=== PATIENT | female | born 1980 | race Two or more races ===

== ENCOUNTER 2025-03-10 12:43 | Emergency (ER) | payer MEDICAID, SELFPAY ==
[2025-03-10 12:44] VITALS: BMI 34.0
[2025-03-10 13:03] VITALS: BP 137/83; PULSE 91; RESP 18; TEMP 36.9; O2SAT 99
--- NOTE | 2025-03-10 13:15 | EDNOTE_ITS ---
ED Wound/Laceration-RME/HPI General Chief Complaint: Wound/Laceration Stated Complaint: LEFT THUMB LACERATION Time Seen by Provider: 03/10/25 12:47 Arrival date/time: 03/10/25 12:43 44-year-old female presents emergency department today for complaint of laceration of the left thumb reports that she was cutting vegetables and accidentally cut her finger today Limitations: no limitations Related Data Home Medications ?Medication ?Instructions ?Recorded ?Confirmed omeprazole 40 mg capsule,delayed 40 mg PO QDAY ##0 release Previous Rx's ?Medication ?Instructions ?Recorded naproxen 500 mg tablet 500 mg PO BID PRN pain #20 t abs 06/20/18 diphenhydramine HCl 50 mg capsule 50 mg PO Q6H PRN all ergic reaction 07/17/21 #20 caps famotidine 20 mg tablet 20 mg PO BID #14 tabs ibuprofen 800 mg tablet 800 mg PO Q8H PRN pain #30 t abs 09/02/21 diphenhydramine HCl 25 mg capsule 25 mg PO TID PRN all ergic reaction 01/25/24 (Banophen) #30 caps Allergies Allergy/AdvReac Type Severity Reaction Status Date / Time No Known Allergies Allergy Verified 03/10/25 12:46 Review of Systems Review of Systems Systems Reviewed: All systems reviewed, normal except as documented Constitutional Constitutional: Reports system reviewed and no additional complaints, except as documented, Denies fever(s) and Denies headache(s) Eyes Eyes: Reports system reviewed and no additional complaints, except as documented and Denies blurry vision ENT Ears, Nose, Mouth, and Throat: Reports system reviewed and no additional complaints, except as documented, Denies headache(s), Denies nasal congestion and Denies nasal discharge Cardiovascular Cardiovascular: Reports system reviewed and no additional complaints, except as documented, Denies chest pain and Denies dyspnea Respiratory Respiratory: Reports system reviewed and no additional complaints, except as documented, Denies chest congestion, Denies cough and Denies dyspnea Gastrointestinal Gastrointestinal: Reports system reviewed and no additional complaints, except as documented and Denies abdominal pain Integumentary/Breasts Skin/Breast: Reports system reviewed and no additional complaints, except as documented, Denies rash and Reports wounds (Laceration left thumb) Neurologic Neurologic: Reports system reviewed and no additional complaints, except as documented, Reports as per HPI and Denies headache(s) Past Medical History Past Medical History CARDIAC: Negative Cardiac Disorders RESPIRATORY: Negative Asthma GENITOURINARY: Negative Renal Disease ENDOCRINE: Negative Diabetes Mellitus Type 2 HEMATOLOGIC: Negative Sickle Cell Disease Social History SMOKING STATUS: Never smoker ED Exam General Limitations: Present no limitations General appearance: Present alert and in no apparent distress Head Head exam: Present atraumatic Eye Eye exam: Present normal appearance, PERRL and EOMI ENT ENT exam: Present normal exam, normal oropharynx and mucous membranes moist Neck Neck exam: Present normal inspection, full ROM and trachea midline Chest Chest inspection: Present normal inspection and symmetric chest wall rise Respiratory Respiratory exam: Present normal lung sounds bilaterally Cardiovascular Cardiovascular exam: Present regular rate, normal rhythm and normal heart sounds Abdominal Exam Abdominal exam: Present soft and normal bowel sounds Extremities Exam Extremities exam: Present full ROM and tenderness (Left thumb pain) Back Exam Back exam: Present normal inspection and full ROM Neurological Exam Neurological exam: Present alert, oriented X3 and CN II-XII intact Psychiatric Psychiatric exam: Present normal affect and normal mood Skin Skin exam: Present warm, dry and other (Laceration left thumb) Course Quality Measures none Orders Category Date Time Status Set Up Suture Tray STAT Care 03/10/25 13:15 Active Wound Care NOW Care 03/10/25 13:15 Active Lidocaine 1% 20 ml [Xylocaine 1% 20 ML] Med 03/10/25 13:15 Discontinued 20 ml INFL X1 ONE TET,DIP/PERT AC (Adult)-Tdap [Boostrix Adult (Tdap) Med 03/10/25 13:15 Discontinued Vacc] 0.5 ml IMI .ONCE ONE Vital Signs Vital signs: Vital Signs Temperature 98.5 F 03/10/25 13:03 Pulse Rate 91 03/10/25 13:03 Respiratory Rate 18 03/10/25 13:03 Blood Pressure 137/83 H 03/10/25 13:03 Pulse Oximetry (%) 99 03/10/25 13:03 Oxygen Delivery Method Room Air 03/10/25 13:03 O2 saturation 99% room air within normal limits Procedures -ED Laceration Laceration 1: Site: hand Side (If applicable): left Size (cm): 2 Description: linear Depth: simple, single layer Local Anesthetic: lidocaine 1% Amount of anesthesia used (mL): 5 Pre-repair: wound explored and irrigated extensively Skin layer closed with: nylon Size (cm): 5-0 Number of sutures: 3 Technique: simple, interrupted Wound / Laceration MDM Narrative MDM Narrative:: 44-year-old female presents emergency department today for complaint of laceration of the left thumb reports that she was cutting vegetables and accidentally cut her finger today On exam patient has laceration distal aspect of the left thumb no evidence of tendon or ligamentous injury laceration relatively superficial Wound irrigated copiously laceration repair with 3 sutures Tetanus updated Patient discharged home in no distress to follow-up with primary care doctor in the next 24 to 48 hours and for any worsening symptoms to return to the ER immediately Patient data External records reviewed:: [facility] previous records Clinical information provided by:: patient Social determinants that could affect healthcare access:: none Patient has the following chronic illnesses:: None How is presenting disease/condition affected by chronic disease/condition?: no chronic disease Evaluation data The following diagnostics were reviewed and interpreted by me:: other (specify) (N/A) Lab and/or radiology exams considered but not ordered:: Considered not ordered Interpretation Summary: N/A Medications / Prescriptions Medications or Prescriptions considered but not ordered:: Given Medication administrations:: Medication Administration History Discontinued Medications Diphtheria/Tetanus/Acell Pertussis (Diphth,Pertuss(Acell),Tet Vac 0.5 Ml Syr- Adult) 0.5 ml IMi .ONCE ONE Stop: 03/10/25 13:16 Lidocaine HCl (Lidocaine Hcl 1% 20 Ml Vial) 20 ml INFL X1 ONE Stop: 03/10/25 13:16 Given Consultations Consultation(s) initiated? (list below): No Diagnosis Wound Differential Diagnosis: laceration, abrasion and avulsion of skin Most likely diagnosis given after review of the tests above:: Laceration Admission Indicated Admission indicated?: not indicated Admission Request Was there a request for admission?: No Disposition Plan Disposition Plan: Discharge Discharge Attestation Discharge Attestation: The patient and all family members were given an opportunity to ask questions and understood the discharge instructions. Discharge instructions specifically effects, indications for sooner follow up or return to the emergency department, and the expected course of current diagnosis. Patient condition: Stable Discharge Plan Plan Patient Disposition: HOME (Self Care) Disposition Comment: Stable Prescriptions/Referrals Prescriptions/Med Rec: No Action omeprazole 40 MG capsule,delayed release(DR/EC) 40 mg PO QDAY Qty: 0 naproxen 500 mg tablet 500 mg PO BID PRN (Reason: pain) Qty: 20 0RF diphenhydramine HCl 50 mg capsule 50 mg PO Q6H PRN (Reason: allergic reaction) Qty: 20 0RF famotidine 20 mg tablet 20 mg PO BID Qty: 14 0RF ibuprofen 800 mg tablet 800 mg PO Q8H PRN (Reason: pain) Qty: 30 0RF diphenhydramine HCl [Banophen] 25 mg capsule 25 mg PO TID PRN (Reason: allergic reaction) Qty: 30 0RF Problem List Clinical Impression: Laceration of left thumb Patient/Caregiver Discharge Instructions Education Materials: ED Laceration: All Closures Additional Instructions: Please follow up with your primary care doctor in the next 24-48hrs for any worsening symptoms return here immediately Print Language: Occitan Stand Alone Forms: Johana Award Info., Patient Portal Info Letter Vaccines Vaccines Given During Stay: TDaP PA/ELECTRIC WELDER HELPER Supervising Physician PA/ELECTRIC WELDER HELPER Supervising Physician: Dr quintero
[2025-03-10] MEDS: DIPHTH,PERTUSS(ACELL),TET VAC 0.5 ML SYR- ADULT IMi (13:42)
[2025-03-10] MEDS: LIDOCAINE HCL 1% 20 ML VIAL INFL (13:43)
== END 2025-03-10 13:50 | disposition home or self-care (01) ==
LOC: SERX 13:37
PROVIDERS: Emergency Provider Emergency Medicine; PCP Physician Assistant
DX: S61.012A Laceration without foreign body of left thumb without damage to nail, initial encounter (principal); Z23 Encounter for immunization; Y93.G1 Activity, food preparation and clean up
CPT/HCPCS: 12001; 90471; 90715; 99283; J3490

== ENCOUNTER 2025-03-20 11:12 | Emergency (ER) | payer MEDICAID, SELFPAY ==
[2025-03-20 11:31] VITALS: BP 127/79; PULSE 99; RESP 16; TEMP 36.8; O2SAT 98; BMI 32.5
--- NOTE | 2025-03-20 11:38 | PD.EDWOUND ---
ED Wound/Laceration-RME/HPI General Chief Complaint: Wound/Laceration Stated Complaint: left thumb laceration Time Seen by Provider: 03/20/25 11:31 Source: patient Arrival date/time: 03/20/25 11:12 44-year-old female with no known medical history presents to the emergency room with a chief complaint of suture removals from her left thumb. Mode of arrival: ambulatory Limitations: no limitations Related Data Home Medications ?Medication ?Instructions ?Recorded ?Confirmed omeprazole 40 mg capsule,delayed 40 mg PO QDAY ##0 09/01/16 release Previous Rx's ?Medication ?Instructions ?Recorded naproxen 500 mg tablet 500 mg PO BID PRN pain #20 tabs 06/20/18 diphenhydramine HCl 50 mg capsule 50 mg PO Q6H PRN allergic reaction 07/17/21 #20 caps famotidine 20 mg tablet 20 mg PO BID #14 tabs 07/17/21 ibuprofen 800 mg tablet 800 mg PO Q8H PRN pain #30 tabs 09/02/21 diphenhydramine HCl 25 mg capsule 25 mg PO TID PRN allergic reaction 01/25/24 (Banophen) #30 caps Allergies Allergy/AdvReac Type Severity Reaction Status Date / Time No Known Allergies Allergy Verified 03/20/25 11:14 Review of Systems Review of Systems Systems Reviewed: All systems reviewed, normal except as documented Constitutional Constitutional: Reports system reviewed and no additional complaints, except as documented, Denies fatigue, Denies fever(s), Denies headache(s) and Denies weakness Eyes Eyes: Reports system reviewed and no additional complaints, except as documented, Denies blurry vision and Denies change in vision ENT Ears, Nose, Mouth, and Throat: Reports system reviewed and no additional complaints, except as documented, Denies otalgia, Denies headache(s), Denies nasal congestion, Denies throat swelling and Denies vertigo Cardiovascular Cardiovascular: Reports system reviewed and no additional complaints, except as documented, Denies chest pain, Denies dyspnea and Denies dyspnea on exertion Respiratory Respiratory: Reports system reviewed and no additional complaints, except as documented, Denies chest congestion, Denies cough, Denies dyspnea, Denies dyspnea on exertion and Denies wheezing Gastrointestinal Gastrointestinal: Reports system reviewed and no additional complaints, except as documented, Denies abdominal pain, Denies cramping, Denies nausea and Denies vomiting Genitourinary Genitourinary: Reports system reviewed and no additional complaints, except as documented Musculoskeletal Musculoskeletal: Reports system reviewed and no additional complaints, except as documented and Denies back pain Integumentary/Breasts Skin/Breast: Reports system reviewed and no additional complaints, except as documented and Denies wounds Neurologic Neurologic: Reports system reviewed and no additional complaints, except as documented, Denies confusion, Denies headache(s), Denies lack of coordination, Denies vertigo and Denies weakness Psychiatric Psychiatric: Reports system reviewed and no additional complaints, except as documented, Denies anxiety, Denies confusion, Denies depression, Denies paranoia, Denies suicidal ideation and Denies tactile hallucinations Endocrine Endocrine: Reports system reviewed and no additional complaints, except as documented and Denies fatigue Hematologic/Lymphatic Hematologic/Lymphatic: Reports system reviewed and no additional complaints, except as documented and Denies lymphadenopathy Allergic/Immunologic Allergic/Immunologic: Reports system reviewed and no additional complaints, except as documented, Denies throat swelling, Denies urticaria and Denies wheezing Past Medical History Past Medical History CARDIAC: Negative Cardiac Disorders or Congestive Heart Failure RESPIRATORY: Negative Chronic Obstructive Pulmonary Disease (COPD) or Asthma GENITOURINARY: Negative Renal Disease ENDOCRINE: Negative Diabetes Mellitus Type 1 or Diabetes Mellitus Type 2 HEMATOLOGIC: Negative Sickle Cell Disease Social History SMOKING STATUS: Never smoker ED Exam General Limitations: Present no limitations General appearance: Present alert and in no apparent distress Head Head exam: Present atraumatic Eye Eye exam: Present normal appearance, PERRL and EOMI ENT ENT exam: Present normal exam, normal oropharynx and mucous membranes moist Neck Neck exam: Present normal inspection, full ROM and trachea midline Chest Chest inspection: Present normal inspection and symmetric chest wall rise Respiratory Respiratory exam: Present normal lung sounds bilaterally Cardiovascular Cardiovascular exam: Present regular rate, normal rhythm and normal heart sounds Abdominal Exam Abdominal exam: Present soft and normal bowel sounds Extremities Exam Extremities exam: Present normal inspection and full ROM Back Exam Back exam: Present normal inspection and full ROM Neurological Exam Neurological exam: Present alert, oriented X3 and CN II-XII intact Psychiatric Psychiatric exam: Present normal affect and normal mood Skin Skin exam: Present warm, dry, intact and normal color Course Quality Measures none Vital Signs Vital signs: Vital Signs Temperature 98.2 F 03/20/25 11:31 Pulse Rate 99 03/20/25 11:31 Respiratory Rate 16 03/20/25 11:31 Blood Pressure 127/79 03/20/25 11:31 Pulse Oximetry (%) 98 03/20/25 11:31 Oxygen Delivery Method Room Air 03/20/25 11:31 Wound / Laceration MDM Narrative MDM Narrative:: 44-year-old female with no known medical history presents to the emergency room with a chief complaint of suture removals from her left thumb. Patient has sutures that were placed in her thumb 7 days ago. The sutures were removed with no complications. There were 3 sutures. There is no signs of infection no redness no warmth and no pus Patient was discharged and educated to follow-up with primary care provider in the next 24 to 48 hours and return to the emergency room for any evidence of worsening signs or symptoms Patient data External records reviewed:: [facility] previous records Clinical information provided by:: patient Social determinants that could affect healthcare access:: none Patient has the following chronic illnesses:: No chronic illness How is presenting disease/condition affected by chronic disease/condition?: no chronic disease Evaluation data The following diagnostics were reviewed and interpreted by me:: lab results and radiology exam(s) Lab and/or radiology exams considered but not ordered:: Labs and radiology exams considered and ordered Interpretation Summary: N/A Medications / Prescriptions Medications or Prescriptions considered but not ordered:: No medication given Medication administrations:: No medication given Consultations Consultation(s) initiated? (list below): No Diagnosis Wound Differential Diagnosis: laceration, abrasion and other (Encounter for suture removal) Most likely diagnosis given after review of the tests above:: Encounter for suture removal Admission Indicated Admission indicated?: not indicated Admission Request Was there a request for admission?: No Disposition Plan Disposition Plan: Discharge Discharge Attestation Discharge Attestation: The patient and all family members were given an opportunity to ask questions and understood the discharge instructions. Discharge instructions specifically effects, indications for sooner follow up or return to the emergency department, and the expected course of current diagnosis. Patient condition: Stable Discharge Plan Plan Patient Disposition: HOME (Self Care) Discharge Disposition comment: Stable Prescriptions/Referrals Prescriptions/Med Rec: No Action omeprazole 40 MG capsule,delayed release(DR/EC) 40 mg PO QDAY Qty: 0 naproxen 500 mg tablet 500 mg PO BID PRN (Reason: pain) Qty: 20 0RF diphenhydramine HCl 50 mg capsule 50 mg PO Q6H PRN (Reason: allergic reaction) Qty: 20 0RF famotidine 20 mg tablet 20 mg PO BID Qty: 14 0RF ibuprofen 800 mg tablet 800 mg PO Q8H PRN (Reason: pain) Qty: 30 0RF diphenhydramine HCl [Banophen] 25 mg capsule 25 mg PO TID PRN (Reason: allergic reaction) Qty: 30 0RF Problem List Clinical Impression: Encounter for removal of sutures Patient/Caregiver Discharge Instructions Education Materials: ED Suture Removal, Infected Wound, ED Stitches/Staple Removal No ... Additional Instructions: For any evidence of worsening signs or symptoms return to the emergency room immediately Print Language: Kyrgyz Stand Alone Forms: Johana Award Info., Work/School Release, Patient Portal Info Letter PA/CHILD CARE CENTRE DIRECTOR Supervising Physician PA/CHILD CARE CENTRE DIRECTOR Supervising Physician: Dr. Bryson
== END 2025-03-20 12:24 | disposition home or self-care (01) ==
LOC: SERX 11:58
PROVIDERS: Emergency Provider Family Medicine
DX: Z48.02 Encounter for removal of sutures (principal)
CPT/HCPCS: 99282